=== PATIENT | female | born 1980 ===

== ENCOUNTER 2024-11-02 11:15 | Inpatient (IN) | payer OTHER ==
[~2024-11-02] VITALS: Ht 30.5 cm; Wt 55.8 kg
[2024-11-02] MEDS ORDERED: MAXALT10 MG PO (13:35)
[2024-11-02] MEDS ORDERED: OMEGA 3 1,0001 EACH PO (13:36)
[2024-11-02] MEDS ORDERED: [UNRECOGNIZED DRUG - OTHER] (13:38)
[2024-11-02 13:40] VITALS: BP 117/67
[2024-11-08 08:30] LABS: RH POSITIVE
[2024-11-08] MEDS ORDERED: THROMBIN,HU/FIBRINOGEN/CALCIUM 10 ML SYRINGE TOP ONE ×2 (12:30→12:53)
[2024-11-08] MEDS ORDERED: VISTASEAL DUAL APPICATOR 1 EACH APPL TOP ONE ×2 (12:30→12:53)
[2024-11-08] MEDS ORDERED: CEFTRIAXONE SODIUM 2,000 MG VIAL IV ONE (12:30)
[2024-11-08] MEDS ORDERED: METRONIDAZOLE/SODIUM CHLORIDE 500 MG/100 ML PIGGYBACK IV ONE (12:30)
[2024-11-08] MEDS ORDERED: ONDANSETRON HCL 2 MG/ML VIAL IV SCH (15:53)
[2024-11-08] MEDS ORDERED: CELECOXIB 200 MG CAPSULE PO STA (15:53)
[2024-11-08] MEDS ORDERED: ACETAMINOPHEN 325 MG TABLET PO SCH (15:54)
[2024-11-08] MEDS ORDERED: GABAPENTIN 100 MG CAPSULE PO SCH (17:00)
[2024-11-08] MEDS ORDERED: RINGERS SOLUTION,LACTATED 1,000 ML IV SCH (17:00)
[2024-11-08] MEDS ORDERED: CELECOXIB 200 MG CAPSULE PO ONE (17:08)
[2024-11-08] MEDS ORDERED: ACETAMINOPHEN 325 MG TABLET PO ONE (17:08)
[2024-11-08] MEDS ORDERED: GABAPENTIN 300 MG CAPSULE PO ONE (17:08)
[2024-11-08] MEDS ORDERED: MORPHINE SULFATE 4 MG/ML VIAL IV ONE (18:35)
[2024-11-08 21:00] LABS: BASO % 0.1 % (0.1-1.2); HEMOGLOBIN 10.1 g/dL (11.2-15.7); LYMPH # 0.38 (1.18-3.74); LYMPH % 2.9 % (19.3-53.1); MEAN CORPUSCULAR HEMOGLOBIN 28.2 pg (25.6-32.2); MONO # 0.74 (0.24-0.82); MONO % 5.6 % (4.7-12.5); NEUT # 11.98 (1.56-6.13); NEUT % 90.8 % (34.0-71.1); PLATELET COUNT 224 K/uL (163-369); RED BLOOD COUNT 3.58 M/uL (3.93-5.22); RED CELL DISTRIBUTION WIDTH 12.6 % (11.6-14.4)
[2024-11-08 21:22] LABS: CREATININE SERUM 0.6 mg/dL (0.55-1.02); GFR 108.11; POTASSIUM 4.07 mEq/L (3.5-5.1)
[2024-11-08 22:35] VITALS: BP 107/67
[2024-11-09 01:53] VITALS: BP 106/66
[2024-11-09 07:22] LABS: BASO % 0.2 % (0.1-1.2); HEMATOCRIT 29.7 % (34.1-44.9); LYMPH # 1.04 (1.18-3.74); LYMPH % 12.1 % (19.3-53.1); MEAN CORPUSCULAR HEMOGLOBIN 27.6 pg (25.6-32.2); MONO # 0.84 (0.24-0.82); MONO % 9.8 % (4.7-12.5); NEUT # 6.65 (1.56-6.13); NEUT % 77.6 % (34.0-71.1); PLATELET COUNT 225 K/uL (163-369); RED BLOOD COUNT 3.52 M/uL (3.93-5.22); RED CELL DISTRIBUTION WIDTH 12.8 % (11.6-14.4)
[2024-11-09 07:27] LABS: HEMOGLOBIN 9.7 g/dL (11.2-15.7)
[2024-11-09 08:23] LABS: CALCIUM 8.1 mg/dL (8.5-10.1); CREATININE SERUM 0.58 mg/dL (0.55-1.02); GFR 112.42; POTASSIUM 4.02 mEq/L (3.5-5.1)
[2024-11-09] MEDS ORDERED: SOD FERRIC GLUC COMPLX/SUCROSE 62.5 MG in 0.9 % SODIUM CHLORIDE 50 ML IV SCH (12:00)
[2024-11-09] MEDS ORDERED: Cyanocobalamin/Mecobalamin 1 TAB.SL SL SCH (12:00)
[2024-11-09 12:59] VITALS: BP 117/76
[2024-11-09 17:08] VITALS: BP 116/72
[2024-11-10 03:02] VITALS: BP 122/79
[2024-11-10 07:26] LABS: BASO % 0.2 % (0.1-1.2); EOS # 0.03 (0.04-0.54); EOS % 0.4 % (0.7-7.0); HEMATOCRIT 28.8 % (34.1-44.9); HEMOGLOBIN 9.5 g/dL (11.2-15.7); LYMPH # 1.55 (1.18-3.74); LYMPH % 19.1 % (19.3-53.1); MEAN CORPUSCULAR HEMOGLOBIN 28.6 pg (25.6-32.2); MONO # 0.73 (0.24-0.82); NEUT # 5.76 (1.56-6.13); NEUT % 70.9 % (34.0-71.1); PLATELET COUNT 220 K/uL (163-369); RED BLOOD COUNT 3.32 M/uL (3.93-5.22); RED CELL DISTRIBUTION WIDTH 12.9 % (11.6-14.4)
[2024-11-10 08:10] VITALS: BP 109/62
== END 2024-11-10 09:16 | disposition home or self-care (01) | DRG 743 ==
LOC: SURH 11-06 11:15 → OB/GYN 11-08 05:10 → O/R 11-08 05:10 → OB/GYN 11-08 17:49
PROVIDERS: Internal Medicine Geriatric Medicine; Student in an Organized Health Care Education/Training Program; Surgery; Urology; ADMIT Obstetrics & Gynecology Gynecology; ATTEND Obstetrics & Gynecology Gynecology
PROC: 0TN74ZZ Release Left Ureter, Percutaneous Endoscopic Approach (ICD-10-PCS; 2024-11-08)
PROC: 0TN64ZZ Release Right Ureter, Percutaneous Endoscopic Approach (ICD-10-PCS; 2024-11-08)
PROC: 0UN14ZZ Release Left Ovary, Percutaneous Endoscopic Approach (ICD-10-PCS; 2024-11-08)
PROC: 0UT14ZZ Resection of Left Ovary, Percutaneous Endoscopic Approach (ICD-10-PCS; 2024-11-08)
PROC: 0DN84ZZ Release Small Intestine, Percutaneous Endoscopic Approach (ICD-10-PCS; 2024-11-08)
PROC: 0DTJ4ZZ Resection of Appendix, Percutaneous Endoscopic Approach (ICD-10-PCS; 2024-11-08)
PROC: 0T788DZ Dilation of Bilateral Ureters with Intraluminal Device, Via Natural or Artificial Opening Endoscopic (ICD-10-PCS; 2024-11-08)
PROC: 0DJD8ZZ Inspection of Lower Intestinal Tract, Via Natural or Artificial Opening Endoscopic (ICD-10-PCS; 2024-11-08)
PROC: 0UT94ZZ Resection of Uterus, Percutaneous Endoscopic Approach (ICD-10-PCS; principal; 2024-11-08 12:15)
PROC: 0UT64ZZ Resection of Left Fallopian Tube, Percutaneous Endoscopic Approach (ICD-10-PCS; 2024-11-08 12:15)
PROC: 0DNW4ZZ Release Peritoneum, Percutaneous Endoscopic Approach (ICD-10-PCS; 2024-11-08 12:15)
DX: D25.1 Intramural leiomyoma of uterus (principal); D25.2 Subserosal leiomyoma of uterus; D25.0 Submucous leiomyoma of uterus; N80.03 Adenomyosis of the uterus; N72 Inflammatory disease of cervix uteri; D27.1 Benign neoplasm of left ovary; N73.6 Female pelvic peritoneal adhesions (postinfective)